=== PATIENT | male | born 1990 | race American Indian/Alaskan Native ===

== ENCOUNTER 2021-02-25 04:10 | Emergency (ER) | payer BC ==
[2021-02-25 05:43] LABS: Basophils # (Auto) 0.1 K/mm3 (0.0-0.1); Basophils % (Auto) 1.2 % (0.0-1.8); Eosinophils # (Auto) 0.2 K/mm3 (0.0-0.4); Eosinophils % (Auto) 5.1 % (0.0-4.3); Hemoglobin 15.6 gm/dl (11.8-15.2); Lymphocytes # (Auto) 2.3 K/mm3 (1.2-5.4); Lymphocytes % (Auto) 46.5 % (13.4-35.0); Mean Corpuscular HGB Conc 33 % (32-34); Mean Corpuscular Volume 93 fl (84-94); Monocytes # (Auto) 0.6 K/mm3 (0.0-0.8); Monocytes % (Auto) 11.8 % (0.0-7.3); Platelet Count 186 K/mm3 (140-440); Red Blood Count 5.06 M/mm3 (3.65-5.03); Red Cell Distribution Width 13.9 % (13.2-15.2)
[2021-02-25 05:49] LABS: Alanine Aminotransferase 21 units/L (7-56); Albumin 4.3 g/dL (3.9-5); BUN/Creatinine Ratio 23; Blood Urea Nitrogen 23 mg/dL (9-20); Calcium 9.2 mg/dL (8.4-10.2); Hemolysis Index 18
[2021-02-25 07:41] LABS: Bilirubin,Urine NEG (Negative); Blood,Urine LG (Negative); Color,Urine Yellow (Yellow); Mucus,Urine FEW /HPF; Protein,Urine <15 mg/dL mg/dL (Negative); Urobilinogen,Urine < 2.0 mg/dL (<2.0)
--- NOTE | 2021-02-25 07:51 | Event Note ---
ED Screening Note ED Screening Note: flank pain and hematuria This initial assessment/diagnostic orders/clinical plan/treatment(s) is/are subject to change based on patients health status, clinical progression and re- assessment by fellow clinical providers in the ED. Further treatment and workup at subsequent clinical providers discretion. Patient/guardian urged not to elope from the ED as their condition may be serious if not clinically assessed and managed. Initial orders include: altagracia kenney
--- NOTE | 2021-02-25 08:26 | Cat Scan Report ---
CT ABDOMEN AND PELVIS WITHOUT CONTRAST INDICATION / CLINICAL INFORMATION: flank pain. TECHNIQUE: Axial CT images were obtained through the abdomen and pelvis without IV contrast. Sagittal and elder l reformatted images. All CT scans at this location are performed using CT dose reduction for ALARA b y means of automated exposure control. COMPARISON: None available. FINDINGS: LOWER CHEST: No significant abnormality. LIVER: No significant abnormality. GALLBLADDER: No significant abnormality. BILE DUCTS: No significant abnormality. PANCREAS: No significant abnormality. SPLEEN: No significant abnormality. ADRENALS: No significant abnormality. RIGHT KIDNEY and URETER: There are approximately 3-4 calyceal stones in the inferior right kidney shy suring up to 4 mm. No ureteral stones or hydronephrosis. LEFT KIDNEY and URETER: 3 calyceal stones are identified in the left kidney with the largest measurin g 5 mm. No ureteral stones or hydronephrosis STOMACH and SMALL BOWEL: No significant abnormality. COLON: No significant abnormality. APPENDIX: No significant abnormality. PERITONEUM: No free fluid. No free air. No fluid collection. LYMPH NODES: No significant adenopathy. AORTA and ARTERIES: No significant abnormality. IVC and VEINS: No significant abnormality. URINARY BLADDER: No significant abnormality. REPRODUCTIVE ORGANS: No significant abnormality. ADDITIONAL FINDINGS: None. SKELETAL SYSTEM: No significant abnormality. IMPRESSION: Bilateral renal calyceal stones. No ureteral stones or hydronephrosis is appreciated. Signer Name: Isaías June Jr, MD Signed: 02/25/2021 8:21 AM Workstation Name: [id number]
[2021-02-25] MEDS ORDERED: SODIUM CHLORIDE 0.9% 1000 ML 1,000 ML IV ONE (08:38)
[2021-02-25] MEDS ORDERED: cefTRIAXone/NS 1 GM/50 ML 1 GM/50 ML BAG IV ONE (08:38)
[2021-02-25] MEDS ORDERED: ONDANSETRON 4 MG/2 ML INJ IV ONE (08:38)
--- NOTE | 2021-02-25 10:29 | Emergency Department Report ---
ED Abdominal Pain HPI - General Chief Complaint: Abdominal Pain Stated Complaint: FLANK PAIN Time Seen by Provider: 02/25/21 10:20 Source: patient, EMS Mode of arrival: Wheelchair Limitations: No Limitations - History of Present Illness Initial Comments: 30-year-old male presents to ED with left flank pain, onset at 4 AM. Patient reports severe sharp pain in the left flank area. He reports associated nausea, however no vomiting. He reports dark urine, however hematuria. He denies fever, dysuria. Patient states after sitting in the waiting room for several hours his pain has now resolved. Patient denies any history of kidney stones in the past. Patient reports when he went to the bathroom since being here in the ED, he saw "something" in the toilet when he urinated. Unsure if it was a kidney stone. MD Complaint: abdominal pain -: This morning Location: L flank Radiation: LLQ Migration to: no migration Severity: severe Quality: sharp Consistency: now resolved Improves With: nothing Worsens With: nothing Associated Symptoms: nausea. denies: vomiting, diarrhea, fever, dysuria, hematuria - Related Data Previous Rx's Medication Instructions Recorded Last Taken Type Naproxen [Naprosyn] 500 mg PO BID #20 tablet 02/25/21 Unknown Rx Allergies Allergy/AdvReac Type Severity Reaction Status Date / Time proactive Allergy Swelling Uncoded 02/25/21 04:38 ED Review of Systems ROS: Stated complaint: FLANK PAIN Other details as noted in HPI Comment: All other systems reviewed and negative Constitutional: denies: chills, fever Genitourinary: denies: dysuria, frequency, hematuria Musculoskeletal: back pain ED Past Medical Hx - Past Medical History Previous Medical History?: No - Surgical History Past Surgical History?: No - Social History Smoking Status: Never Smoker Substance Use Type: None - Medications Home Medications: Home Medications Medication Instructions Recorded Confirmed Last Taken Type Naproxen [Naprosyn] 500 mg PO BID #20 tablet 02/25/21 Unknown Rx ED Physical Exam - General Limitations: No Limitations General appearance: alert, in no apparent distress - Head Head exam: Present: atraumatic, normocephalic - Eye Eye exam: Present: normal appearance, EOMI - ENT ENT exam: Present: mucous membranes moist - Neck Neck exam: Present: normal inspection - Respiratory Respiratory exam: Present: normal lung sounds bilaterally. Absent: respiratory distress - Cardiovascular Cardiovascular Exam: Present: regular rate, normal rhythm - GI/Abdominal GI/Abdominal exam: Present: soft. Absent: distended, tenderness - Extremities Exam Extremities exam: Present: normal inspection - Back Exam Back exam: Absent: CVA tenderness (R), CVA tenderness (L) - Neurological Exam Neurological exam: Present: alert, oriented X3 - Psychiatric Psychiatric exam: Present: normal affect, normal mood - Skin Skin exam: Present: warm, dry, intact, normal color ED Course Vital Signs 02/25/21 02/25/21 02/25/21 04:35 10:28 10:42 Temperature 98.0 F 97.8 F Pulse Rate 66 58 L Respiratory 18 18 18 Rate Blood Pressure 132/84 Blood Pressure 137/91 [Left] O2 Sat by Pulse 100 100 100 Oximetry ED Medical Decision Making - Lab Data Result diagrams: 02/25/21 05:08 02/25/21 05:08 - Radiology Data Radiology results: report reviewed, image reviewed - Medical Decision Making 30 yo M presents to ED w/ left flank pain. Pain currently resolved. CT shows no ureteral stone, only calyceal stones. Possible recently passed stone. No CVA tenderness on exam. Vitals stable. Pt afebrile. No elevated serum WBCs. UA sshows hematuria and WBCs, however, negative nitrites, no bacteria present. Urology f/u advised. Prescriptions given. Return precautions given. - Differential Diagnosis kidney stone, pyelonephritis Critical care attestation.: If time is entered above; I have spent that time in minutes in the direct care of this critically ill patient, excluding procedure time. ED Disposition Clinical Impression: Kidney stones Disposition: - TO HOME OR SELFCARE Is pt being admited?: No Condition: Stable Instructions: Kidney Stones, [id number]-Hudh, Dietary Guidelines to Help Prevent Kidney Stones Prescriptions: Naproxen [Naprosyn] 500 mg PO BID #20 tablet Referrals: LUH BARRETO MD [Staff Physician] - 3-5 Days Time of Disposition: 10:29
[2021-02-25 10:43] VITALS: BP 137/91
== END 2021-02-25 10:51 | disposition home or self-care (01) ==
LOC: ED 04:10
DX: N20.0 Calculus of kidney (principal); Z79.899 Other long term (current) drug therapy; Z88.8 Allergy status to other drugs, medicaments and biological substances
CPT/HCPCS: 36415; 74176; 80053; 81001; 85025; 87086